=== PATIENT | male | born 2005 | race Caucasian/White ===

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

== ENCOUNTER 2024-08-28 15:24 | Emergency (ER) | payer OTHER, SELFPAY ==
[2024-08-28 15:29] VITALS: BP 141/74; PULSE 84; TEMP 36.6; O2SAT 97; BMI 27.4
[2024-08-28] MEDS: LIDOCAINE HCL 1% 100 MG/10 ML MDV INJ (15:53)
--- NOTE | 2024-08-28 16:04 | ED_ITS ---
HPI - Wound/Laceration General Chief Complaint: Wound/Laceration Stated Complaint: Laceration Time Seen by Provider: 08/28/24 15:30 Source: patient and family Mode of arrival: walk-in Limitations: no limitations History of Present Illness HPI narrative: 18-year-old male presents to the emergency department for laceration to his left elbow area. This was sustained 15 minutes before coming into the emergency department on the sharp edge of porcelain which was already broken. No other injuries were sustained. No weakness or numbness. He is up-to-date on his tetanus immunization. Related Data Allergies Allergy/AdvReac Type Severity Reaction Status Date / Time vancomycin Allergy Intermediate Rash Verified 08/28/24 15:29 Review of Systems ROS Narrative A ten point review of systems is negative except as noted above. PFSH PFSH Social History Little interest or pleasure in doing things: not at all Feeling down, depressed, or hopeless: not at all Exam Narrative Exam Narrative: Nurses note and vital signs reviewed and patient is not hypoxic. General: The patient appears well and in no apparent distress. Patient is resting comfortably on cart. Skin: Warm, dry, no pallor noted. There is no rash noted. Head: Normocephalic, atraumatic Eye: Normal conjunctiva, no drainage Ears, Nose, Mouth, and Throat: oral mucosa is moist. Nares patent. Cardiovascular: Regular Rate and Rhythm Respiratory: Patient is in no distress, no accessory muscle use GI: Nontender Musculoskeletal: There is a slightly curved laceration at the left elbow just proximal to the olecranon. Elbow is full range of motion. Radial pulse 2+. No active bleeding and no obvious foreign bodies are present. Neurological: A&O, normal speech, fingers of left hand have full range of motion Psychiatric: Cooperative Constitutional Vital Signs, click to edit/add: Last Vital Signs Temp 97.9 F 08/28/24 15:29 Pulse 84 08/28/24 15:29 Resp 16 08/28/24 15:29 BP 141/74 08/28/24 15:29 Pulse Ox 97 08/28/24 15:29 O2 Del Method Room Air 08/28/24 15:29 Course Vital Signs Vital signs: Vital Signs Temperature 97.9 F 08/28/24 15:29 Pulse Rate 84 08/28/24 15:29 Respiratory Rate 16 08/28/24 15:29 Blood Pressure 141/74 08/28/24 15:29 Pulse Oximetry 97 08/28/24 15:29 Oxygen Delivery Method Room Air 08/28/24 15:29 Temperature 97.9 F 08/28/24 15:29 Pulse Rate 84 08/28/24 15:29 Respiratory Rate 16 08/28/24 15:29 Blood Pressure 141/74 08/28/24 15:29 Pulse Oximetry 97 08/28/24 15:29 Oxygen Delivery Method Room Air 08/28/24 15:29 MDM - Wound/Laceration MDM Narrative Medical decision making narrative: Dressing and Chris wrap applied. Chris wrap checked by me and found to be appropriate, he is neurovascular intact. Sutures are to be removed in a week. He was advised to limit use of that arm. Treatment diagnosis and follow-up were discussed with the patient and his mother. No evidence of foreign body. Differential Diagnosis Differential diagnosis: Likely laceration, avulsion of skin and other (Foreign body) Discharge Plan Discharge Chief Complaint: Wound/Laceration Clinical Impression: Laceration Patient Disposition: Home, Self-Care Time of Disposition Decision: 16:03 Condition: Good Mode of Transportation: Private Vehicle Print Language: Amharic Instructions: Laceration (ED) Additional Instructions: Sutures to be removed in a week. Limit motion of that arm. Change dressing daily and use Chris wrap until sutures are removed. Referrals: PAUL KING [Primary Care Provider] - 1 week Procedures ED Procedure Instructions Procedures Procedures: The following procedure was performed by me. Local infiltration was carried out with 1% lidocaine without epinephrine resulting in complete skin anesthesia. The area was prepped with Betadine x 3 and draped sterilely and explored for foreign bodies and none were found. The wound was then closed with five 4-0 Ethilon sutures resulting in good skin reapproximation and no complications. He tolerated the procedure well.
--- NOTE | 2024-08-28 16:08 | PC.NURSE ---
Wound cleansed with saline. Well approximated with sutures intact. No bleeding at this time. Telfa dressing applied and secured with SHANNAN wrap. Tolerated well.
== END 2024-08-28 16:21 | disposition home or self-care (01) ==
PROVIDERS: Emergency Provider Emergency Medicine; PCP Family Medicine
DX: S51.012A Laceration without foreign body of left elbow, initial encounter (principal); W25.XXXA Contact with sharp glass, initial encounter
CPT/HCPCS: 12002; 99282